=== PATIENT | male | born 1970 | race Caucasian/White ===

== ENCOUNTER 2021-03-22 18:48 | Emergency (ER) | payer BC, OTHER ==
[2021-03-22 19:06] VITALS: BP 116/69; PULSE 82; TEMP 98.1; BMI 22.7
== END 2021-03-22 20:00 | disposition home or self-care (01) ==
LOC: JER 18:48 → JERFT 18:48
PROC: 0H98XZZ Drainage of Buttock Skin, External Approach (ICD-10-PCS; principal; 2021-03-22)
DX: L02.31 Cutaneous abscess of buttock (principal)
CPT/HCPCS: 99283-25

== ENCOUNTER 2021-03-25 09:58 | Emergency (ER) | payer BC ==
[2021-03-25 10:01] VITALS: BP 110/65; PULSE 68; TEMP 98; BMI 23.2
== END 2021-03-25 11:50 | disposition home or self-care (01) ==
LOC: JER 09:58
DX: L02.31 Cutaneous abscess of buttock (principal); Z48.01 Encounter for change or removal of surgical wound dressing
CPT/HCPCS: 99281-25